=== PATIENT | female | born 2000 | race Caucasian/White ===

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

== ENCOUNTER 2022-01-22 09:48 | Emergency (ER) | payer MEDICAID ==
[~2022-01-22] VITALS: Ht 160 cm; Wt 51.7 kg
[~2022-01-22 09:48] MED LIST changes: -AMOX100S19 PO; -MOME17SP NS; +MOME17SP5 NS; -MONT4TAB8 PO; +MONT4TAB9 PO
[2022-01-22 09:51] VITALS: BP_SYST 122
--- NOTE | 2022-01-22 10:00 | NUR ---
Placed in room 3 . Placed on glue wheel operator, blood pressure machine and pulse oximeter. To gown for exam. Side rails up. Report given to JUAN ALBERTO FALK.
--- NOTE | 2022-01-22 12:03 | NUR ---
MELLY Pandya at bedside examining patient.
[2022-01-22] MEDS: IBUPROFEN 600 MG TABLET PO ONE (12:17)
--- NOTE | 2022-01-22 12:17 | NUR ---
Ibuprofen 600mg given PO. Cup of water given. Pt has no c/o. A&Ox4. All neuro checks within normal limits. Mother at bedside. Bed in lowest position.
--- NOTE | 2022-01-22 12:17 | NUR ---
Patient transported to radiology via wheelchair, accompanied by hydroelectric plant technician.
[2022-01-22] MEDS ORDERED: CYCL10TA24 PO (12:21)
[2022-01-22] MEDS ORDERED: IBUP-1969 PO (12:21)
[2022-01-22] MEDS ORDERED: TRAM50TA PO (12:21)
--- NOTE | 2022-01-22 12:25 | NUR ---
Returned from radiology, back to [facility].
[2022-01-22 13:31] VITALS: BP_SYST 117
--- NOTE | 2022-01-22 13:32 | NUR ---
Patient given written and verbal discharge instructions and verbalizes understanding. ER MD discussed with patient the results and treatment provided. Patient in stable condition. ID arm band removed. Rx of Tramadol, Ibuprofen, and Cyclobenzaprine given. Patient educated on pain management and to follow up with PMD. Pain Scale . Opportunity for questions provided and answered. Medication side effect fact sheet provided.
== END 2022-01-22 13:32 | disposition home or self-care (01) ==
LOC: SED 09:48
DX: S16.1XXA Strain of muscle, fascia and tendon at neck level, initial encounter (principal); F07.81 Postconcussional syndrome; J45.909 Unspecified asthma, uncomplicated; Z79.899 Other long term (current) drug therapy; V18.4XXA Pedal cycle driver injured in noncollision transport accident in traffic accident, initial encounter; Y93.89 Activity, other specified; Y92.89 Other specified places as the place of occurrence of the external cause; Y99.8 Other external cause status
CPT/HCPCS: 70450-TC; 72125-TC; 76376; 81025; 99284

== ENCOUNTER 2022-03-18 16:24 | Emergency (ER) | payer MEDICAID ==
[~2022-03-18] VITALS: Ht 160 cm; Wt 50.8 kg
[~2022-03-18 16:24] MED LIST changes: +CYCL10TA24 PO; +IBUP-1969 PO; +TRAM50TA PO
[2022-03-18 17:38] VITALS: BP_SYST 106
--- NOTE | 2022-03-18 17:43 | NUR ---
Pt triaged in tent due to flu like sx. Mother with patient.
--- NOTE | 2022-03-18 17:44 | NUR ---
Per mother, Dr Garza evaluated pt in tent.
--- NOTE | 2022-03-18 17:44 | NUR ---
COVID swab collected and sent to lab. Urine sample obtained to do preg prior to CXR.
--- NOTE | 2022-03-18 17:45 | NUR ---
Pt here from home reporting flu like sx after returning from [place] yesterday. Alert and oriented x 3 upon face to face assessment. Pt reporting sore throat, body aches and fever [employer]. Tylenol/Motrin [employer]. Pending CXR.
--- NOTE | 2022-03-18 18:23 | NUR ---
Pt now in [facility] pending CXR
[2022-03-18] MEDS ORDERED: NAPR-1172 PO (18:47)
[2022-03-18 18:59] VITALS: BP_SYST 106
--- NOTE | 2022-03-18 19:00 | NUR ---
Patient given written and verbal discharge instructions and verbalizes understanding. ER MD discussed with patient the results and treatment provided. Patient in stable condition. ID arm band removed. Rx of NAPRROSYN given. Patient educated on pain management and to follow up with PMD. Pain Scale 0/10. Opportunity for questions provided and answered. Medication side effect fact sheet provided.
== END 2022-03-18 18:59 | disposition home or self-care (01) ==
LOC: SED 16:24
DX: B34.9 Viral infection, unspecified (principal); R05.9 Cough, unspecified; R50.9 Fever, unspecified; J45.909 Unspecified asthma, uncomplicated; Z20.822 Contact with and (suspected) exposure to COVID-19
CPT/HCPCS: 36415; 71045; 81025; 99284